=== PATIENT | female | born 1985 | race Caucasian/White ===

== ENCOUNTER 2021-02-13 20:06 | Emergency (ER) | payer OTHER ==
--- NOTE | 2021-02-13 22:03 | EDM.PDOC ---
ED HPI GENERAL MEDICAL PROBLEM - General Chief Complaint: ENT Problem Stated Complaint: PAIN IN TOOTH, JAW, AND EAR Time Seen by Provider: 02/13/21 21:20 Source of Information: Reports: Patient, RN History Limitations: Reports: No Limitations - History of Present Illness INITIAL COMMENTS - FREE TEXT/NARRATIVE: Patient with significant history of sinusitis documented on CT. She has seen ENT. Recently had eardrums punctured to relieve pressure in ears. Now has left ear pain sinus pain tooth pain swelling of the right eye sore throat and drainage. She believes she has a return of her sinusitis. However she is unsure and also made an appointment with her dentist due to a root canal that was completed in August. Patient has tried many [id number] medications without significant relief. Onset: Sudden Onset Date: 02/06/21 Duration: Getting Worse Location: Reports: Head, Face, Neck Quality: Reports: Ache, Pressure, Throbbing Severity: Moderate Improves with: Reports: None Worsens with: Reports: None Context: Reports: Sick Contact Associated Symptoms: Reports: Headaches Treatments [employer]: Reports: Acetaminophen Left Ear Pain Score (Numeric/FACES): 4 - Related Data Allergies Allergy/AdvReac Type Severity Reaction Status Date / Time No Known Allergies Allergy Verified 02/13/21 20:54 Home Meds: Home Meds Fluticasone Propionate [Flonase] 1 applic NASBOTH DAILY 02/13/21 [History] Ibuprofen 400 mg PO Q6H PRN 02/13/21 [History] Past Medical History [employer] History: Reports: - Past Surgical History HEENT Surgical History: Reports: Oral Surgery, Other (See Below) Other HEENT Surgeries/Procedures: root canal Social & Family History - Tobacco Use Tobacco Use Status *Q: Never Tobacco User Second Hand Smoke Exposure: No - Caffeine Use Caffeine Use: Reports: Coffee - Recreational Drug Use Recreational Drug Use: No ED ROS ENT - Review of Systems Review Of Systems: See Below Constitutional: Reports: No Symptoms HEENT: Reports: Dental Pain, Ear Pain, Eye Pain, Hearing Loss (Fullness and feels she is in a tunnel making it difficult to hear), Sinus Problem Respiratory: Reports: No Symptoms Cardiovascular: Reports: No Symptoms GI/Abdominal: Reports: No Symptoms Neurological: Reports: No Symptoms Psychiatric: Reports: No Symptoms Hematologic/Lymphatic: Reports: No Symptoms ED EXAM, ENT - Physical Exam Exam: See Below Exam Limited By: No Limitations General Appearance: Alert, Moderate Distress Eye Exam: Bilateral Eye: Normal Inspection Ears: TM Erythema, TM Fluid Nose: Clear Rhinorrhea, Nasal Tenderness Mouth/Throat: Normal Inspection, Normal Gums Head: Atraumatic, Normocephalic Neck: Normal Inspection, Supple, Full Range of Motion, Tender Lateral Cardiovascular: Normal Peripheral Pulses, Regular Rate, Rhythm, No Edema GI/Abdominal: Normal Bowel Sounds, Soft, Non-Tender Neurological: Alert, Oriented, CN II-XII Intact, Normal Cognition Skin: Warm, Dry, Intact, Normal Color Course - Vital Signs Last Recorded V/S: Last Vital Signs Temp 36.2 C 02/13/21 21:14 Pulse 61 02/13/21 21:14 Resp 16 02/13/21 21:14 BP 148/94 H 02/13/21 21:14 Pulse Ox 97 02/13/21 21:14 - Re-Assessments/Exams Free Text/Narrative Re-Assessment/Exam: 02/13/21 22:03 Likely recurrent sinusitis. Will prescribe clindamycin due to previous amoxicillin and Augmentin therapies. We will also provide 5 days of prednisone to help with inflammation and swelling. Patient to follow-up with primary care provider if symptoms do not improve or worsen. Patient may return to ER if necessary. Departure - Departure Time of Disposition: 22:07 Disposition: Home, Self-Care 01 Condition: Fair Clinical Impression: Sinusitis - Discharge Information Instructions: Sinusitis, Adult, [id number] Referrals: PCP,None [Primary Care Provider] - Forms: ED Department Discharge Additional Instructions: Take prednisone on a full stomach in the a.m. Take clindamycin 3 times daily until gone. Complete all medications do not save any for future illness. Follow-up with primary care provider if infection and or signs or symptoms continue post antibiotic treatment. Sepsis Event Note (ED) - Evaluation Sepsis Screening Result: No Definite Risk - Focused Exam Vital Signs: Vital Signs Temp Pulse Resp BP Pulse Ox 02/13/21 21:14 36.2 C 61 16 148/94 H 97 02/13/21 20:38 36.2 C 61 16 148/94 H 97 - Assessment/Plan Assessment:: Sinusitis Plan: Antibiotic treatment with steroid for acute bacterial rhinosinusitis. Take all antibiotics as prescribed. Take prednisone daily with food starting in the a.m. as this may cause you to be awake at night if taken too late in the day.
== END 2021-02-13 22:13 | disposition home or self-care (01) ==
LOC: JP.ED 20:06
DX: J32.9 Chronic sinusitis, unspecified (principal)
CPT/HCPCS: 99282